=== PATIENT | female | born 1995 | race Caucasian/White ===

== ENCOUNTER 2018-12-06 08:18 | Emergency (ER) | payer OTHER, BC ==
--- NOTE | 2018-12-06 09:23 | CR ---
Lumbar spine: AP and lateral views of the lumbar spine were obtained. Comparison: No previous study. Vertebral body heights and disc spaces are maintained. Pedicles as well as transverse and spinous processes are intact. Sacroiliac joints are within normal limits. No fracture or subluxation is seen. Impression: 1. No abnormality is identified on two-view lumbar spine exam. Diagnostic code #1
--- NOTE | 2018-12-06 09:23 | CR ---
Thoracic spine: AP, lateral and swimmer's views of the thoracic spine were obtained. Comparison: No previous study. Pedicles are intact. Vertebral body heights and disc spaces are maintained. No fracture or subluxation is seen. Impression: 1. Unremarkable three-view thoracic spine exam. Diagnostic code #1
--- NOTE | 2018-12-06 09:30 | CR ---
Left knee: Four views of the left knee were obtained. Comparison: No previous study. No joint effusion is seen. Medial and lateral joint compartments are maintained in height. No fracture, dislocation or other bony abnormality is seen. Impression: 1. No abnormality is identified on left knee exam. Diagnostic code #1
--- NOTE | 2018-12-06 09:45 | EDM.PDOC ---
ED HPI GENERAL MEDICAL PROBLEM - General Chief Complaint: Back Pain or Injury Stated Complaint: BACK AND KNEE INJURY Time Seen by Provider: 12/06/18 08:35 Source of Information: Reports: Patient History Limitations: Reports: No Limitations - History of Present Illness INITIAL COMMENTS - FREE TEXT/NARRATIVE: The patient presents with left knee pain, low back pain and thoracic back pain. 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 She did not hit her head and she has no neck pain. She has no chest pain or abdominal pain. Onset: Sudden Duration: Day(s): (Last night) Location: Reports: Back, Lower Extremity, Left (knee) Quality: Reports: Sharp Severity: Moderate Improves with: Reports: Immobilization Worsens with: Reports: Movement Context: Reports: Trauma (Slipped and fell) Associated Symptoms: Reports: No Other Symptoms Back Pain Score (Numeric/FACES): 6 - Related Data Allergies Allergy/AdvReac Type Severity Reaction Status Date / Time azithromycin [From Zithromax] Allergy Hives Verified 12/06/18 08:33 sulfamethoxazole Allergy Nausea Verified 12/06/18 08:33 [From Bactrim] trimethoprim [From Bactrim] Allergy Nausea Verified 12/06/18 08:33 Home Meds: Home Meds Cyclobenzaprine [Flexeril] 10 mg PO TID PRN #20 tab 12/06/18 [Rx] Norgestimate-Ethinyl Estradiol [Ortho Tri-Cyclen 28 Tablet] 1 tab PO ASDIRECTED 12/06/18 [History] Past Medical History - Past Health History Medical/Surgical History: Denies Medical/Surgical History Social & Family History - Tobacco Use Smoking Status *Q: Never Smoker - Caffeine Use Caffeine Use: Reports: Coffee, Soda - Recreational Drug Use Recreational Drug Use: No ED ROS GENERAL - Review of Systems Review Of Systems: See Below Constitutional: Reports: No Symptoms HEENT: Reports: No Symptoms Respiratory: Reports: No Symptoms Cardiovascular: Reports: No Symptoms Endocrine: Reports: No Symptoms GI/Abdominal: Reports: No Symptoms : Reports: No Symptoms Musculoskeletal: Reports: Back Pain, Other (Left knee pain) ED EXAM,LOWER BACK PAIN/INJURY - Physical Exam Exam: See Below Exam Limited By: No Limitations General Appearance: Alert, No Apparent Distress Ears: Normal External Exam Nose: Normal Inspection Head: Atraumatic, Normocephalic Neck: Normal Inspection Respiratory/Chest: No Respiratory Distress, Lungs Clear, Normal Breath Sounds Cardiovascular: Regular Rate, Rhythm, No Edema, No Murmur GI/Abdominal: Soft, Non-Tender, No Organomegaly, No Mass Back Exam: Other (Pain upon palpation to the thoracic and lumbar spine) Extremities: Other (Edema and pain upon palpation to the left knee. Ligaments are stable.) Course - Vital Signs Last Recorded V/S: Last Vital Signs Temp 97.3 F 12/06/18 08:31 Pulse 70 12/06/18 08:31 Resp 16 12/06/18 08:31 BP 137/86 12/06/18 08:31 Pulse Ox 99 12/06/18 08:31 - Re-Assessments/Exams Free Text/Narrative Re-Assessment/Exam: 12/06/18 09:43 I ordered an x-ray of her left knee, lumbar and thoracic spine. These x-rays all look good. I will get her on some flexeril and refer her to a chiropractor. Departure - Departure Time of Disposition: 09:45 Disposition: Home, Self-Care 01 Condition: Good Clinical Impression: Fall Qualifiers: Encounter type: initial encounter Qualified Code(s): W19.XXXA - Unspecified fall, initial encounter Contusion of left knee Qualifiers: Encounter type: initial encounter Qualified Code(s): S80.02XA - Contusion of left knee, initial encounter Lumbar strain Qualifiers: Encounter type: initial encounter Qualified Code(s): S39.012A - Strain of muscle, fascia and tendon of lower back, initial encounter Thoracic myofascial strain Qualifiers: Encounter type: initial encounter Qualified Code(s): S29.019A - Strain of muscle and tendon of unspecified wall of thorax, initial encounter - Discharge Information *PRESCRIPTION DRUG MONITORING PROGRAM REVIEWED*: No *COPY OF PRESCRIPTION DRUG MONITORING REPORT IN PATIENT JENNIFER: No Prescriptions: Cyclobenzaprine [Flexeril] 10 mg PO TID PRN #20 tab PRN Reason: Pain Referrals: Monie Mckenna MD [Primary Care Provider] - 1 Week Additional Instructions: Ice the areas that hurt for 15 minutes 3 times per day for 2 days. Take motrin or aleve and the flexeril as needed for pain. Follow up with your doctor and your chiropractor. Please return if you are worse.
== END 2018-12-06 10:09 | disposition home or self-care (01) ==
LOC: JD.ED 08:18
DX: S39.012A Strain of muscle, fascia and tendon of lower back, initial encounter (principal); S29.012A Strain of muscle and tendon of back wall of thorax, initial encounter; S80.02XA Contusion of left knee, initial encounter; W19.XXXA Unspecified fall, initial encounter; Z88.1 Allergy status to other antibiotic agents; Z88.2 Allergy status to sulfonamides; W00.0XXA Fall on same level due to ice and snow, initial encounter
CPT/HCPCS: 72070; 72070-26; 72100; 72100-26; 73564-26-LT; 73564-LT; 99283